=== PATIENT | female | born 1950 | race Caucasian/White ===

== ENCOUNTER → 2017-06-26 | Outpatient (CLI) | payer OTHER | END | disposition home or self-care (01) | LOC: MAMMO 08:32 | DX: Z12.31 Encounter for screening mammogram for malignant neoplasm of breast (principal) | CPT/HCPCS: 77067 ==

== ENCOUNTER 2018-02-14 20:03 | Emergency (ER) | payer OTHER, MEDICARE ==
[~2018-02-14] VITALS: Ht 160 cm; Wt 48.1 kg
[~2018-02-14 20:03] MED LIST: ALPR0.25 PO; SERT25TA PO
[2018-02-14] MEDS ORDERED: LIDO:MAALOX 1:1 20 ML SINGLE DOSE. PO ONE (20:30)
[2018-02-14] MEDS ORDERED: ASPIRIN CHEWABLE 81 MG TABLET. PO ONE (20:30)
[2018-02-14] MEDS ORDERED: LORazepam 1 MG TABLET PO ONE (20:30)
[2018-02-14 20:31] LABS: BASO % 0 % (0-3); EOS # 0.1 x10^3/uL (0.0-0.7); EOS % 1 % (0-3); HEMATOCRIT 42.4 % (36.0-47.0); HEMOGLOBIN 14.6 g/dL (12.0-15.5); LYMPH # 1.8 x10^3/uL (1.0-4.8); LYMPH % 23 % (24-48); MEAN CORPUSCULAR HEMOGLOBIN 30 pg (25-35); MEAN CORPUSCULAR HGB CONC 34 g/dL (31-37); MEAN CORPUSCULAR VOLUME 88 fL (79-100); MONO # 0.7 x10^3/uL (0.0-1.1); MONO % 9 % (0-9); NEUT # 5.2 x10^3uL (1.8-7.7); NEUT % 67 % (31-73); PLATELET COUNT 179 x10^3/uL (140-400); RED BLOOD COUNT 4.84 x10^6/uL (3.50-5.40); RED CELL DISTRIBUTION WIDTH 13.5 % (11.5-14.5); WHITE BLOOD COUNT 7.8 x10^3/uL (4.0-11.0)
[2018-02-14 20:38] LABS: CALCIUM 10.1 mg/dL (8.5-10.1); CREATININE 0.8 mg/dL (0.6-1.0); GFR 71.1; POTASSIUM 3.6 mmol/L (3.5-5.1)
[2018-02-14 20:49] LABS: ALBUMIN 4.3 g/dL (3.4-5.0); ALBUMIN/GLOBULIN RATIO 1.2 (1.0-1.7); TOTAL BILIRUBIN 0.6 mg/dL (0.2-1.0); TOTAL PROTEIN 7.8 g/dL (6.4-8.2)
[2018-02-14] MEDS ORDERED: fentaNYL PF VIAL 100 MCG/2 ML VIAL IV ONE (21:30)
[2018-02-14 22:30] VITALS: BP 118/67
--- NOTE | 2018-02-14 22:38 | RAD ---
Indication:PAIN BETWEEN SHOULDER BLADES, NAUSEA/ DIARRHEA TECHNIQUE: Grayscale, color Doppler and spectral waveform is of the abdomen obtained. COMPARISON:None FINDINGS: The visualized pancreas is within normal limits. Pancreatic body and tail not visualized due to overlying bowel gas. Main pancreatic duct is nondilated. IVC is patent. CBD is within normal limits measuring 5 mm in diameter. Main portal vein is patent with hepatopedal flow. Hepatic veins are patent. The liver measures 13 cm in longest dimension and is normal in echogenicity without apparent focal lesion. Right kidney measures 9.5 cm in length with dilated renal calyx. No gallstones, pericholecystic fluid or gallbladder wall thickening. IMPRESSION: 1. No cholelithiasis or sonographic evidence of acute cholecystitis. 2. Mild lower pole right renal caliectasis. Electronically signed by: Pa Briscoe DO (02/14/2018 10:35 PM) [facility]
[2018-02-14] MEDS ORDERED: ONDA4TAB7 PO (23:13)
[2018-02-14] MEDS ORDERED: HYDR-971 PO (23:13)
--- NOTE | 2018-02-15 01:25 | PHYS DOC ---
Past Medical History Past Medical History: No Pertinent History Past Surgical History: Other Additional Past Surgical Histo: D&C Alcohol Use: None Drug Use: None Adult General Chief Complaint Chief Complaint: CHEST PAIN HPI HPI Patient is a 67 year old female presenting with multiple complaints. She has had 2 weeks now of loose stool frequent belching decreased by mouth intake. She was started on a regimen for possible H. pylori but her breath test came back negative. Tonight at around 5 PM she was having incessant belching and began to have more chest pressure and upper back pain which she has had over the last 2 weeks but it got worse tonight it was not exertional it appeared to be worse with belching. Patient is very worried about her gallbladder she does not think this is from her heart she said she had cardiac stress testing 5 years ago that was negative I do not have those reports right now Review of Systems Review of Systems Constitutional: Denies fever or chills [] Eyes: Denies change in visual acuity, redness, or eye pain [] HENT: Denies nasal congestion or sore throat [] Respiratory: Denies cough or shortness of breath [] Cardiovascular: No additional information not addressed in HPI [] : Denies dysuria or hematuria [] Endocrine: Denies polyuria or polydipsia [] All other systems were reviewed and found to be within normal limits, except as documented in this note. Current Medications Current Medications Current Medications Medications (Trade) Dose Ordered Sig/Thania Start Time Stop Time Status Last Admin Dose Admin Aspirin (Children'S Aspirin) 324 mg 1X ONCE 02/14/18 20:30 02/14/18 20:31 DC 02/14/18 21:20 324 MG Fentanyl Citrate (Fentanyl 2ml Vial) 50 mcg 1X ONCE 02/14/18 21:30 02/14/18 21:31 DC 02/14/18 21:26 50 MCG Lorazepam (Ativan) 1 mg 1X ONCE 02/14/18 20:30 02/14/18 20:31 DC 02/14/18 21:00 1 MG Multi-Ingredient Mouthwash/Gargle (Gi Cocktail) 20 ml 1X ONCE 02/14/18 20:30 02/14/18 20:31 DC 02/14/18 21:20 20 ML Allergies Allergies Allergies Coded Allergies Type Severity Reaction Last Updated Verified No Known Drug Allergies 01/09/14 No Physical Exam Physical Exam Constitutional: Well developed, well nourished, no acute distress, non-toxic appearance. [] HENT: Normocephalic, atraumatic, bilateral external ears normal, oropharynx moist, no oral exudates, nose normal. [] Eyes: PERRLA, EOMI, conjunctiva normal, no discharge. [] Neck: Normal range of motion, no tenderness, supple, no stridor. [] Cardiovascular:Heart rate regular rhythm, no murmur [] Lungs & Thorax: Bilateral breath sounds clear to auscultation [] Abdomen: Bowel sounds normal, soft, no tenderness, no masses, no pulsatile masses. [] Skin: Warm, dry, no erythema, no rash. [] Back: No tenderness, no CVA tenderness. [] Extremities: No tenderness, no cyanosis, no clubbing, ROM intact, no edema. [] Neurologic: Alert and oriented X 3, normal motor function, normal sensory function, no focal deficits noted. [] Psychologic: Affect normal, judgement normal, mood anxiety Current Patient Data Vital Signs Vital Signs Date Time Temp Pulse Resp B/P (MAP) Pulse Ox O2 Delivery O2 Flow Rate FiO2 02/14/18 22:30 88 18 118/67 (84) 99 Room Air 02/14/18 20:27 97.7 97.7 Lab Values Laboratory Tests Test 02/14/18 20:10 02/14/18 22:00 White Blood Count 7.8 x10^3/uL (4.0-11.0) Red Blood Count 4.84 x10^6/uL (3.50-5.40) Hemoglobin 14.6 g/dL (12.0-15.5) Hematocrit 42.4 % (36.0-47.0) Mean Corpuscular Volume 88 fL (79-100) Mean Corpuscular Hemoglobin 30 pg (25-35) Mean Corpuscular Hemoglobin Concent 34 g/dL (31-37) Red Cell Distribution Width 13.5 % (11.5-14.5) Platelet Count 179 x10^3/uL (140-400) Neutrophils (%) (Auto) 67 % (31-73) Lymphocytes (%) (Auto) 23 % (24-48) L Monocytes (%) (Auto) 9 % (0-9) Eosinophils (%) (Auto) 1 % (0-3) Basophils (%) (Auto) 0 % (0-3) Neutrophils # (Auto) 5.2 x10^3uL (1.8-7.7) Lymphocytes # (Auto) 1.8 x10^3/uL (1.0-4.8) Monocytes # (Auto) 0.7 x10^3/uL (0.0-1.1) Eosinophils # (Auto) 0.1 x10^3/uL (0.0-0.7) Basophils # (Auto) 0.0 x10^3/uL (0.0-0.2) Sodium Level 140 mmol/L (136-145) Potassium Level 3.6 mmol/L (3.5-5.1) Chloride Level 102 mmol/L (98-107) Carbon Dioxide Level 31 mmol/L (21-32) Anion Gap 7 (6-14) Blood Urea Nitrogen 10 mg/dL (7-20) Creatinine 0.8 mg/dL (0.6-1.0) Estimated GFR (Cockcroft-Gault) 71.1 BUN/Creatinine Ratio 13 (6-20) Glucose Level 118 mg/dL (70-99) H Calcium Level 10.1 mg/dL (8.5-10.1) Total Bilirubin 0.6 mg/dL (0.2-1.0) Aspartate Amino Transferase (AST) 22 U/L (15-37) Alanine Aminotransferase (ALT) 25 U/L (14-59) Alkaline Phosphatase 105 U/L (46-116) Troponin I Quantitative < 0.017 ng/mL (0.000-0.055) < 0.017 ng/mL (0.000-0.055) Total Protein 7.8 g/dL (6.4-8.2) Albumin 4.3 g/dL (3.4-5.0) Albumin/Globulin Ratio 1.2 (1.0-1.7) Lipase 199 U/L (73-393) Laboratory Tests 02/14/18 20:10 Laboratory Tests 02/14/18 20:10 EKG EKG [] Interpretation Time: EKG #1 done at 2013 showed normal sinus rhythm rate of [address] depressions in lead 2 and lead aVF less than 0.5 cm repeat EKG at 25/07/12 this very subtle finding was no longer present. No old EKGs for comparison Radiology/Procedures Radiology/Procedures [] Impressions: IMPRESSION: 1. No cholelithiasis or sonographic evidence of acute cholecystitis. 2. Mild lower pole right renal caliectasis. Electronically signed by: Pa Pérez DO (02/14/2018 10:35 PM) [facility] DICTATED and SIGNED BY: PA PÉREZ DO DATE: 02/14/182230 Course & Med Decision Making Course & Med Decision Making Pertinent Labs and Imaging studies reviewed. (See chart for details) []67-year-old female presenting with belching and very atypical chest discomfort in the setting of some recent GI symptoms. Troponin negative 2 heart score h 0 e 1 a 2 r 0 t 0 3 This patient is very unlikely to have cardiac-related symptoms she has had GI related symptoms for 2 weeks she was given a dose of fentanyl and slept the emergency room and when she woke up she felt much better. I had a long discussion with she and her 10-15 minutes long in fact we talked about the risks and benefits the likely diagnosis we ruled out the gallbladder etiology we talked about the very low but not 0 risk of cardiac-related symptoms. She does not think this is from her heart. I tend agreement I did tell her that I wasn't certain and I offered her admission to the hospital for cardiac monitoring and stress testing but she prefers to go home and see her primary doctor who has been following her over this last couple of weeks. I think in light of the negative troponins and her lack of any risk factors for coronary artery disease other than age I think this is reasonable. Specifically she has never been a smoker she has no high blood pressure no diabetes denies high cholesterol no family history. Talked about return precautions to the emergency room and she is agreeable to the plan short course of pain medication was provided. Dragon Disclaimer Dragon Disclaimer This electronic medical record was generated, in whole or in part, using a voice recognition dictation system. Departure Departure Impression: Primary Impression: Nausea Disposition: 01 HOME, SELF-CARE Condition: IMPROVED Patient Instructions: Nausea and Vomiting, [id number] Additional Instructions: SEE YOUR DOCTOR TO TALK ABOUT FURHTER TESTING IN THE NEXT 24-48 HOURS. Scripts Ondansetron Hcl (ZOFRAN) 4 Mg Tablet 4 MG PO PRN TID PRN for NAUSEA/VOMITING, #15 nausea/vomiting Prov: CRISPIN MILNER MD 02/14/18 Hydrocodone/Apap 5-325 (NORCO 5-325 TABLET) 1 Each Tablet 1-2 EACH PO PRN Q6HRS PRN for PAIN, #15 as needed for pain Prov: CRISPIN MILNER MD 02/14/18 CRISPIN MILNER MD Feb 15, 2018 01:25
--- NOTE | 2018-02-15 07:20 | EKG ---
[facility] [address] [place] [address] Test Date: 2018-02-14 Test Time: 20:14:54 Pat Name: FELICIA AL Department: Room: Gender: F Party Plan Dealer: : 1950 Requested By: CRISPIN MILNER Order Number: [id number] Reading MD: Per Barboza MD Measurements Intervals [place] Rate: 75 P: 77 SD: 128 QRS: 28 QRSD: 78 T: 44 QT: 386 QTc: 433 Interpretive Statements SINUS RHYTHM CANNOT RULE OUT LATERAL ISCHEMIA Electronically Signed On 02-15-2018 13:55:33 CDT by Per Barboza MD
--- NOTE | 2018-02-15 07:21 | EKG ---
[facility] [address] [place] [address] Test Date: 2018-02-14 Test Time: 22:13:43 Pat Name: FELICIA AL Department: Room: Gender: F Fiscal Manager: : 1950 Requested By: CRISPIN MILNER Order Number: [id number] Reading MD: Per Barboza MD Measurements Intervals [place] Rate: 53 P: 76 VT: 134 QRS: 30 QRSD: 78 T: 43 QT: 428 QTc: 407 Interpretive Statements SINUS RHYTHM Electronically Signed On 02-15-2018 13:55:53 CDT by Per Barboza MD
--- NOTE | 2018-02-15 08:12 | RAD ---
Chest radiograph 02/14/2018 8:18 PM INDICATION: Chest pain COMPARISON: January 09, 2014 TECHNIQUE: Portable upright frontal view of the chest is provided. FINDINGS: The cardiomediastinal silhouette is within normal limits. There are no pleural effusions. There is no pulmonary vascular congestion. There is no pneumothorax. The lungs are clear. No significant osseous abnormality is identified. IMPRESSION: No acute cardiopulmonary process. Electronically signed by: Carissa Curiel MD (02/15/2018 8:09 AM) [id number]
== END 2018-02-14 23:39 | disposition home or self-care (01) ==
LOC: ER 20:03
DX: N28.89 Other specified disorders of kidney and ureter (principal); R11.0 Nausea; R19.7 Diarrhea, unspecified; R14.2 Eructation; R07.89 Other chest pain; M54.6 Pain in thoracic spine
CPT/HCPCS: 36415; 71045; 76705; 80053; 83690; 84484; 85025; 93005; 96374; 99285; J3010

== ENCOUNTER → 2018-02-27 | Outpatient (CLI) | payer OTHER, MEDICARE ==
[2018-02-14 22:30] VITALS: BP 118/67
[~2018-02-27] MED LIST changes: +HYDR-971 PO; +ONDA4TAB7 PO
--- NOTE | 2018-02-27 14:16 | RAD ---
HEPATOBILIARY SCAN WITH EJECTION FRACTION 02/27/2018 2:03 PM History: Bloating gassy post meal x 1 month - 5.5mci 99mTc Choletec liquid meal for EF Procedure: Serial static images are obtained of the liver and biliary system in the frontal projection following IV administration of 5.5 mCi of Technetium 99m Choletec. After filling of the gallbladder, a fat-containing gestational supplement was given and imaging over the abdomen continued for approximately 1 hour. Findings: There is prompt hepatic clearance of tracer from the blood pool. There is homogeneous distribution throughout the liver. After1 hour there is near total emptying of the gallbladder. IMPRESSION: 1. The cystic duct and common bile duct are patent. Negative for acute cholecystitis. 2. The gallbladder ejection fraction appears to be within normal limits Electronically signed by: Chad Bundy MD (02/27/2018 2:12 PM) [id number]
== END | disposition home or self-care (01) ==
LOC: NM 07:10
PROVIDERS: ATTEND Physician Assistant
DX: R14.2 Eructation (principal); Z87.19 Personal history of other diseases of the digestive system
CPT/HCPCS: 78226; 96374; 96375; A9537

== ENCOUNTER → 2018-07-30 | Outpatient (CLI) | payer OTHER ==
[~2018-07-30] MED LIST changes: +HYDR-3164 PO; -HYDR-971 PO
--- NOTE | 2018-07-30 08:57 | RAD ---
DATE: July 30, 2018 EXAM: MAMMO CALI SCREENING BILATERAL HISTORY: Screening. COMPARISON: 2014 and 2015 and 2018 2-D digital mammographic views of both breasts were performed in the CC and MLO projections. 3-D digital tomosynthesis images of both breasts were performed in the CC and MLO projections and reviewed on a computer workstation. This study was interpreted with the benefit of Computerized Aided Detection (CAD). FINDINGS: Breast Density: SCATTERED The breast parenchyma shows scattered fibroglandular densities. Breast parenchyma level B.. Again seen is an anterior nodule of the upper-outer quadrant of the left breast which is stable. There are no new dominant suspicious masses, suspicious microcalcifications or evidence of architectural distortion. IMPRESSION: No mammographic indicators for malignancy. BI-RADS CATEGORY: 2 BENIGN FINDING RECOMMENDED FOLLOW-UP: 12M 12 MONTH FOLLOW-UP PQRS compliance statement: Patient information was entered into a reminder system with a target due date July 31, 2019 for the next mammogram. Mammography is a sensitive method for finding small breast cancers, but it does not detect them all and is not a substitute for careful clinical examination. A negative mammogram does not negate a clinically suspicious finding and should not result in delay in biopsying a clinically suspicious abnormality. "Our facility is accredited by the [employer] Mammography Program." The patient's breast density may affect the ability of mammography to detect breast cancer. There are 4 categories of breast density, A, B, C and D. Breast density A means that most of the breast tissue is replaced with adipose tissue and therefore is not dense. Breast density B means that the breast tissue is mildly dense and scattered. Breast density C means that the breast tissue is heterogeneously dense. Breast density D means that the breast tissue is very dense. Breast densities especially C and D may decrease the sensitivity of mammography to detect breast cancer. Therefore, the patient may benefit from 3-D breast mammography (3D breast tomography) as a part of their screening mammogram. Insurance may or may not pay for this additional imaging. The patient's breast density based on today's mammogram is category B.
== END | disposition home or self-care (01) ==
LOC: MAMMO 07:52
PROVIDERS: ATTEND Family Medicine
DX: Z12.31 Encounter for screening mammogram for malignant neoplasm of breast (principal)
CPT/HCPCS: 77063; 77067

== ENCOUNTER → 2019-07-05 | Outpatient (CLI) | payer MEDICARE, OTHER ==
[~2019-07-05] MED LIST changes: +IOHEXOL 240 MG/ML 50ML VIAL. PO ONE; +IOHEXOL 300 MG/ML 100ML VIAL. IV ONE
--- NOTE | 2019-07-05 12:18 | RAD ---
EXAM: CT ABDOMEN/PELVIS WITH CONTRAST. HISTORY: Abdominal pain, eructation. TECHNIQUE: Computed tomography of the abdomen and pelvis was performed after the intravenous administration of iodinated contrast. One or more of the following individualized dose reduction techniques were utilized for this examination: 1. Automated exposure control. 2. Adjustment of the mA and/or kV according to patient size. 3. Use of iterative reconstruction technique. COMPARISON: None. FINDINGS: Lung windows through the visualized portions of the bases reveal mild atelectasis. There is a component of right atrial enlargement. Bone windows reveal no suspicious lesions. The liver, spleen, adrenal glands, pancreas, gallbladder and kidneys are unremarkable. The stomach and gastroesophageal junction are unremarkable by CT. There is no small bowel obstruction. The appendix is not inflamed. There are no pathologically enlarged lymph nodes. Trace free pelvic fluid is likely physiologic or reactive. Stool throughout the colon is consistent with constipation. IMPRESSION: 1. No cause for acute pain is identified. Correlate for constipation. Electronically signed by: Amber Puente MD (07/05/2019 12:15 PM) [facility]
== END | disposition home or self-care (01) ==
LOC: CT 10:59
PROVIDERS: ATTEND Family Medicine
DX: J98.11 Atelectasis (principal); K59.00 Constipation, unspecified
CPT/HCPCS: 74177; Q9966; Q9967

== ENCOUNTER → 2020-03-02 | Outpatient (CLI) | payer MEDICARE ==
[~2020-03-02] MED LIST changes: -IOHEXOL 240 MG/ML 50ML VIAL. PO ONE; -IOHEXOL 300 MG/ML 100ML VIAL. IV ONE
[2020-03-02 15:45] LABS: CALCIUM 9.1 mg/dL (8.5-10.1); MAGNESIUM 2.2 mg/dL (1.8-2.4)
== END | disposition home or self-care (01) ==
LOC: LAB 15:02
PROVIDERS: ATTEND Internal Medicine Gastroenterology
DX: Z79.899 Other long term (current) drug therapy (principal)
CPT/HCPCS: 36415; 82310; 82607; 83735

== ENCOUNTER → 2020-03-26 | Outpatient (CLI) | payer MEDICARE | LOC: LAB 13:15 | PROVIDERS: ATTEND Internal Medicine Gastroenterology | DX: E53.8 Deficiency of other specified B group vitamins (principal) | CPT/HCPCS: 36415; 82607 ==

== ENCOUNTER → 2020-04-27 | Outpatient (CLI) | payer MEDICARE, OTHER ==
--- NOTE | 2020-04-28 08:34 | RAD ---
DATE: 04/27/2020 9:08 AM EXAM: MAMMO CALI SCREENING BILATERAL HISTORY: Screening COMPARISON: 07/30/2018, 06/26/2017 Bilateral CC and MLO views of the breasts were performed. Bilateral breast tomosynthesis was performed in CC and MLO projections. This study was interpreted with the benefit of Computerized Aided Detection (CAD). FINDINGS: Breast Density: SCATTERED The breast parenchyma shows scattered fibroglandular densities. Breast parenchyma level B No suspicious masses, microcalcifications or architectural distortion is present to suggest malignancy in either breast. The visualized axillae are unremarkable. IMPRESSION: No mammographic evidence of malignancy. BI-RADS CATEGORY: 1 NEGATIVE RECOMMENDED FOLLOW-UP: 12M 12 MONTH FOLLOW-UP Annual screening mammography is recommended, unless clinically indicated sooner based on symptoms or change in physical exam. PQRS compliance statement: Patient information was entered into a reminder system with a target due date for the next mammogram. Mammography is a sensitive method for finding small breast cancers, but it does not detect them all and is not a substitute for careful clinical examination. A negative mammogram does not negate a clinically suspicious finding and should not result in delay in biopsying a clinically suspicious abnormality. "Our facility is accredited by the [employer] Mammography Program."
== END ==
LOC: MAMMO 09:01
PROVIDERS: ATTEND Family Medicine
DX: Z12.31 Encounter for screening mammogram for malignant neoplasm of breast (principal)
CPT/HCPCS: 77063; 77067

== ENCOUNTER → 2020-06-17 | Outpatient (CLI) | payer OTHER, MEDICARE | LOC: LAB 11:02 | PROVIDERS: ATTEND Internal Medicine Pulmonary Disease | DX: R51.9 Headache, unspecified (principal); R68.89 Other general symptoms and signs; Z20.828 Contact with and (suspected) exposure to other viral communicable diseases | CPT/HCPCS: U0003 ==

== ENCOUNTER → 2021-06-21 | Outpatient (CLI) | payer OTHER, MEDICARE | LOC: LAB 10:25 | PROVIDERS: ATTEND Internal Medicine Pulmonary Disease | DX: R51.9 Headache, unspecified (principal); R68.83 Chills (without fever); Z20.822 Contact with and (suspected) exposure to COVID-19 | CPT/HCPCS: U0003; U0005 ==